=== PATIENT | female | born 1965 | race Caucasian/White ===

== ENCOUNTER 2019-06-26 09:05 | Outpatient (CLI) | payer BC ==
--- NOTE | 2019-06-26 09:52 | ULT ---
EXAM: US Abdominal CLINICAL HISTORY: Epigastric pain. COMPARISON: None. FINDINGS: Pancreas: The head and proximal pancreatic body have a normal echotexture. The remainder the pancrea s is obscured by bowel gas. IVC: Visualized IVC has a normal caliber. Aorta: Visualized aorta has a normal caliber. Liver:Normal hepatic parenchymal echotexture. No hepatic masses or intrahepatic biliary dilatation. T he contour of the hepatic margins maintained. Right hepatic lobe measures 14.7 cm. Gallbladder: No sonographic evidence of cholelithiasis. There are 2 mobile, none shadowing hyperechoi c foci which are adherent to the gallbladder wall. Gallbladder polyps are favored, measuring 0.3 and 0.2 cm respectively. Ken's sign:Negative CBD: 0.25 common bile duct diameter Portal vein: Patent. Appropriate directional flow. Right kidney: Normal cortical echotexture. No hydronephrosis. Right kidney measuring 9.7 x 5.0 x 4 p oint cm in length. Left kidney: Normal cortical echotexture. No hydronephrosis . Left kidney measuring 9.0 x 5.3 x 5.4 cm in length Spleen: Normal echotexture, measuring 9.2 cm in length IMPRESSION: 1. Echogenic nonshadowing adherent foci involving the gallbladder wall. Gallbladder polyps are favore d. 2. No sonographic evidence of cholecystitis. 2. No evidence of hydronephrosis
== END 2019-06-26 09:06 | disposition home or self-care (01) ==
LOC: BICULT 09:05
PROVIDERS: ATTEND Internal Medicine Gastroenterology
DX: R10.13 Epigastric pain (principal); R93.2 Abnormal findings on diagnostic imaging of liver and biliary tract
CPT/HCPCS: 93975